=== PATIENT | male | born 1945 | race Caucasian/White ===

== ENCOUNTER 2017-05-16 13:32 | Inpatient (IN) | payer OTHER ==
[~2017-05-16] VITALS: Ht 175.3 cm; Wt 62.1 kg
[~2017-05-16 13:32] MED LIST: AMIO200T PO; ASPI81CT89 PO; ATOR40TA PO; CARV3.122 PO; FERR325E14 PO; FURO-570 PO; GLIM2TAB PO; INSULIN GLARGINE SUBQ; Ondansetron IVP; POTA8TER12 PO; RIVA20TA PO; SITA50TA3 PO; SYN.1 PO; [UNRECOGNIZED DRUG - CODE] PO
[2017-05-16 13:47] VITALS: BP 148/86
--- NOTE | 2017-05-16 13:57 | NUR ---
PATIENT BIBA TO BED 3.
--- NOTE | 2017-05-16 14:00 | NUR ---
72M BIBA FROM HOME C/O GENERALIZED WEAKNESS X 1 DAY; PT AA&OX3 ON ARRIVAL, PERRLA, CALM/COOPERATIVE, ABLE TO FOLLOW COMMANDS; RR EVEN/UNLABORED, EQUAL RISE/FALL OF CHEST NOTED AT THIS TIME WITH RHONCHI TO BL BASES; PT STATES NO PAIN, N/V/D AT THIS TIME; PT NOTED WITH ERYTHEMA TO SACRUM AT THIS TIME; NO OPEN WOUND NOTED AT THIS TIME; PT NOTED WITH BL DRY/FLAKY SKIN TO BL FEET; PT STATES NO PAIN TO BL FEET AT THIS TIME; SKIN IS WARM/DRY AT THIS TIME; PT NOTED WITH HEALED SCAR TO ABDOMEN; PT STATES AMBULATES WITH CANE AT HOME; HX: PACEMAKER, AFIB, HTN, HYPERLIPIDEMIA, MULTIPLE IA'S, CVA; PT PLACED ON MONITOR, RESTING IN BED WITH HOB ELEVATED AND IN LOWEST POSITION; POSITIONED FOR COMFORT; ER MD MADE AWARE OF STATUS. WILL CONTINUE TO MONITOR.
[2017-05-16] MEDS ORDERED: NACL 0.9% 1,000 ML IV SCH ×2 (14:03→15:48)
[2017-05-16] MEDS ORDERED: ACETAMINOPHEN 325 MG TAB ONE (14:19)
[2017-05-16 14:35] LABS: HEMOGLOBIN 13.1 g/dL (12.0-18.0); MEAN CORPUSCULAR HEMOGLOBIN 31 pg (27-31); MEAN CORPUSCULAR HGB CONC 33 g/dL (33-37); MEAN CORPUSCULAR VOLUME 95 fL (80-94); PLATELET COUNT (AUTO) 223 K/uL (140-450); RED BLOOD CELL COUNT(AUTO) 4.23 MIL/uL (4.20-6.10); RED CELL DISTRIBUTION WIDTH 12.2 % (11.6-13.7); WHITE BLOOD COUNT (AUTO) 14.9 K/uL (4.8-10.8)
[2017-05-16 14:49] LABS: LYMPHOCYTES % (MANUAL) 2 % (20-46); MONOCYTES % (MANUAL) 2 % (5-12)
--- NOTE | 2017-05-16 14:52 | NUR ---
XRAY AT BEDSIDE.
[2017-05-16 15:00] LABS: ANION GAP 18.5 (8-16); ASPARTATE AMINOTRANSFERASE 11 U/L (15-37); CARBON DIOXIDE 22.7 mmol/L (21-32); CHLORIDE 100 mmol/L (98-107); CREATININE 1.6 mg/dL (0.7-1.3); POTASSIUM 5.2 mmol/L (3.5-5.1); SODIUM SERUM 136 mmol/L (136-145); TOTAL BILIRUBIN 1.6 mg/dL (0.0-1.0); UREA NITROGEN, BLOOD 43 mg/dL (7-18)
[2017-05-16] MEDS ORDERED: PIPERACILLIN/TAZOBACTAM 3.375 GM in DEXTROSE 5% 50 ML IV ONE (15:05)
--- NOTE | 2017-05-16 15:10 | NUR ---
PT APPEARS TO BE RESTING COMFORTABLY IN BED; RR EVEN/UNLABORED; VSS; WILL CONTINUE TO MONITOR.
[2017-05-16 15:12] LABS: GLUCOSE 841 mg/dL (74-106)
[2017-05-16] MEDS ORDERED: NACL 0.9% 1,000 ML IV ONE (15:35)
[2017-05-16] MEDS ORDERED: ONDANSETRON 4 MG/2 ML VIAL IM/IVP PRN (15:50)
[2017-05-16] MEDS ORDERED: MORPHINE SULFATE 2 MG/ML SYR IVP PRN (15:50)
[2017-05-16] MEDS ORDERED: DOCUSATE SODIUM 100 MG GELCAP PO PRN (15:50)
[2017-05-16] MEDS ORDERED: PIPERACILLIN/TAZOBACTAM 3.375 GM VIAL IV ONE (16:05)
--- NOTE | 2017-05-16 16:25 | NUR ---
CALLED [facility] TO GIVE REPORT; S/W WITH LESLI LAURENT; RN SPEAKING TO CHARGE NURSE ABOUT BLOOD SUGAR; WILL CALL BACK.
--- NOTE | 2017-05-16 16:34 | NUR ---
REPORT GIVEN TO LESLI LAURENT AT THIS TIME.
[2017-05-16] MEDS ORDERED: DEXTROSE 50% 50 ML SYR IVP PRN (16:35)
--- NOTE | 2017-05-16 16:40 | NUR ---
Patient will be admitted to care of DR. HULL. Admited to TELEMETRY. Will go to room 124B. Belongings list completed. Report to LESLI LAURENT.
[2017-05-16 16:45] LABS: CHOL/HDL RATIO 3.4 (1-4.5); FREE T4 (FREE THYROXINE) 1.11 ng/dL (0.76-1.46); MAGNESIUM 2.6 mg/dL (1.8-2.4); THYROID STIMULATING HORMONE 0.78 uIU/mL (0.34-3.74)
--- NOTE | 2017-05-16 16:55 | NUR ---
RECEIVED PT FROM ER NURSE AT BEDSIDE. PT IS A&OX3. PT HAS IV ON R F/A 18 G CONNECTED TO ZOSYN BUT ALREADY FINISHED. WILL CONNECT TO IVF ORDERED. RECHECK BS 567, WILL REPORT TO . PT HAS NO PAIN. ORIENTED PT TO ROOM AND USE OF CALL LIGHT. NO DISTRESS NOTED IN PT. VS STABLE. CALL LIGHT WITHIN REACH. WILL CONTINUE TO MONITOR.
[2017-05-16] MEDS ORDERED: MECLIZINE 25 MG TAB PO PRN (17:15)
[2017-05-16 17:20] VITALS: BP 109/87
--- NOTE | 2017-05-16 18:00 | NUR ---
PT GOT UP TO USE BATHROOM WITH 1 ASSIST, TOLERATED WELL. HAD SMALL BM AND VOIDED. HELPED BACK TO BED. CALL LIGHT WITHIN REACH. WILL CONTINUE TO MONITOR. BED ALARM ON.
[2017-05-16] MEDS ORDERED: INSULIN DETEMIR 100 UNITS/ML 10 ML VIAL SUBQ SCH (18:15)
[2017-05-16] MEDS ORDERED: CLINICAL MONITORING MC PRN (18:20)
[2017-05-16] MEDS: NACL 0.9% 1,000 ML IV SCH ×2 (18:21→23:52)
[2017-05-16 18:29] LABS: BILIRUBIN,URINE NEGATIVE (NEGATIVE); BLOOD, URINE NEGATIVE (NEGATIVE); LEUKOCYTE ESTERASE ,URINE NEGATIVE (NEGATIVE); NITRITE, URINE NEGATIVE (NEGATIVE); PH,URINE 5.5 (5.0-9.0); UGLUCOSE 3+ (NEGATIVE)
[2017-05-16 18:30] LABS: APPEARANCE,URINE CLEAR (CLEAR); COLOR,URINE STRAW (YELLOW)
--- NOTE | 2017-05-16 19:09 | NUR ---
PT REQUESTED $400 TO BE KEPT IN [facility], CALLED ADMITTING. PT'S DAUGHTER REQUESTS TO BE NOTIFIED ON STATUS OF PT RICARDO LIN [phone], BUT PT PREFERS GRANDDAUGHTER ROBERT TO BE PRIMARY PERSON TO NOTIFY BECAUSE SHE LIVES CLOSER [phone], ADMITTING AWARE.
--- NOTE | 2017-05-16 19:25 | NUR ---
ENDORSED CARE OF PT TO BREANN RN AT BEDSIDE. PT IN STABLE CONDITION.
--- NOTE | 2017-05-16 19:30 | NUR ---
RECEIVED REPORT FROM AM NURSE. PT RESTING IN BED, AOX4, ABLE TO VERBALIZE NEEDS, AMBULATORY WITH STANDBY ASSIST OR CANE. PT DENIES CHEST PAIN, SOB OR S/S OF ACUTE DISTRESS. STAFFING PROGRAM MANAGER IN PLACE. IV ACCESS ASYMPTOMATIC, PATENT AND INTACT. IVF INFUSING WELL. DISCUSSED PLAN OF CARE WITH PT. PT VERBALIZED UNDERSTANDING. SAFETY MEASURES ENSURED. CALL LIGHT WITHIN REACH. WILL CONTINUE TO MONITOR.
[2017-05-16 20:00] VITALS: BP 129/74
[2017-05-16 20:55] LABS: ANION GAP 17.3 (8-16); CARBON DIOXIDE 22.2 mmol/L (21-32); CHLORIDE 104 mmol/L (98-107); CREATININE 1.4 mg/dL (0.7-1.3); POTASSIUM 4.5 mmol/L (3.5-5.1); SODIUM SERUM 139 mmol/L (136-145); UREA NITROGEN, BLOOD 36 mg/dL (7-18)
[2017-05-16 20:57] LABS: GLUCOSE 572 mg/dL (74-106)
[2017-05-16] MEDS ORDERED: PIPER/TAZO 3.375GM/D5W PREMIX 50 ML IV SCH (21:00)
[2017-05-16] MEDS ORDERED: AMIODARONE 200 MG TAB PO SCH (21:00)
[2017-05-16] MEDS: CARVEDILOL 3.125 MG TAB PO SCH (21:15)
[2017-05-16] MEDS: FUROSEMIDE 40 MG TAB PO SCH (21:15)
[2017-05-16] MEDS: BLOOD GLUCOSE MONITORING 1 DEV DEV FS SCH ×2 (21:16→23:58)
[2017-05-16] MEDS: INSULIN LISPRO SLIDING SCALE 100 UNITS/ML VIAL SUBQ PRN (21:23)
--- NOTE | 2017-05-16 21:30 | NUR ---
BLOOD SUGAR 572, MADE DR RENEE AWARE. MD INSTRUCTED TO ADMINISTER 10 UNITS HUMALOG SUBCUTANEOUS AND RECHECK BLOOD SUGAR IN 20 MINS AFTER ADMINISTRATION. ADMINISTERED INSULIN COVERAGE AND DUE MEDS WITH EDUCATION. PT VERBALIZED UNDERSTANDING, TOLERATED MEDS WELL. ALL NEEDS MET. SAFETY MEASURES ENSURED. CALL LIGHT WITHIN REACH. WILL CONTINUE TO MONITOR.
--- NOTE | 2017-05-16 22:33 | NUR ---
CALLED DR RENEE, MADE AWARE OF PT'S ACCUCHECK BLOOD SUGAR 350 AT THIS TIME. INSTRUCTED BY TO MONITOR PT AND RECHECK BLOOD SUGAR AT 0000 MIDNIGHT. WILL CARRY OUT.
[2017-05-16] MEDS: PIPER/TAZO 2.25GM/D5W PREMIX 50 ML IV SCH (23:51)
[2017-05-17] VITALS (8 sets, daily range): BP systolic 109–134; BP diastolic 58–77
--- NOTE | 2017-05-17 | NUR ---
CALLED DR RENEE, MADE MD AWARE OF PT BLOOD SUGAR 201 AT THIS TIME. MD INSTRUCTED NOT TO GIVE INSULIN COVERAGE AT THIS TIME AND RECHECK BLOOD SUGAR IN THE MORNING. ADMINISTERED DUE MEDICATIONS WITH EDUCATION. PT VERBALIZED UNDERSTANDING. IVPB INFUSING WELL. ALL NEEDS MET. SAFETY MEASURES ENSURED. CALL LIGHT WITHIN REACH. WILL CONTINUE TO MONITOR.
[2017-05-17] MEDS: ACETAMINOPHEN 325 MG TAB PO PRN ×2 (00:52→08:09)
--- NOTE | 2017-05-17 03:45 | NUR ---
ENDORSED PLAN OF CARE TO CONTINUING NIGHT RN. CONDITION STABLE.
--- NOTE | 2017-05-17 03:46 | NUR ---
RECEIVED REPORT FROM ANOTHER NIGHT NURSE. PT RESTING IN BED, AOX4, ABLE TO MAKE NEEDS KNOWN. IS ABLE TO AMBULATE WITH CANE AT STAND BYE FOR ASSISTANCE. NO S/S OF DISTRESS. NO COMPLAINTS OF PAIN AT THIS TIME. ON TELE MONITORING. WITH AN IV TO THE RIGHT FA, INTACT AND PATENT. REORIENTED PATIENT TO THE UNIT. WILL CONTINUE TO MONITOR. ALL NEEDS ATTENDED. CALL LIGHT WITHIN REACH. SAFETY CHECKS IN PLACE.
--- NOTE | 2017-05-17 04:00 | NUR ---
VS STABLE. NO S/S OF DISTRESS. NO COMPLAINTS OF PAIN. WILL CONTINUE TO MONITOR.
[2017-05-17] MEDS: PIPER/TAZO 2.25GM/D5W PREMIX 50 ML IV SCH ×2 (05:19→12:57)
[2017-05-17] MEDS: NACL 0.9% 1,000 ML IV SCH ×2 (05:19→11:40)
--- NOTE | 2017-05-17 05:20 | NUR ---
GAVE IV ATB ZOSYN, WILL CONTINUE TO MONITOR. ALL NEEDS ATTENDED. CALL LIGHT WITHIN REACH. SAFETY CHECKS IN PLACE.
--- NOTE | 2017-05-17 05:20 | NUR ---
CURRENTLY BEING ASSISTED TO THE RESTROOM BY THE BILLING CONTROL CLERK. WILL CONTINUE TO MONITOR.
[2017-05-17] MEDS: BLOOD GLUCOSE MONITORING 1 DEV DEV FS SCH ×4 (06:32→20:07)
--- NOTE | 2017-05-17 06:32 | NUR ---
CHECKED BLOOD SUGAR - 66. SAYS HE IS FEELING FINE. GAVE APPLE JUICE.
--- NOTE | 2017-05-17 07:20 | NUR ---
ENDORSED TO AM SHIFT NURSE FOR CONTINUITY OF CARE, IN STABLE CONDITION.
--- NOTE | 2017-05-17 07:21 | NUR ---
RECEIVED PT FROM CARE TRANSITION COORDINATOR NURSE AT BEDSIDE. PT IS A&OX3. PT HAS IV ON R F/A 18 G RUNNING NS@180. NO DISTRESS NOTED IN PT. BED ALARM ON. SCDS ON. CALL LIGHT WITHIN REACH. WILL CONTINUE TO MONITOR.
[2017-05-17] MEDS: CARVEDILOL 3.125 MG TAB PO SCH ×2 (08:07→20:42)
[2017-05-17] MEDS: FUROSEMIDE 40 MG TAB PO SCH ×2 (08:08→20:43)
[2017-05-17] MEDS: ATORVASTATIN 20 MG TAB PO SCH (08:08)
[2017-05-17] MEDS: LACTOBACILLUS RHAMNOSUS GG 1 EACH CAP PO SCH (08:08)
[2017-05-17] MEDS: LEVOTHYROXINE 0.1 MG TAB PO SCH (08:09)
[2017-05-17] MEDS: ASPIRIN 81 MG TAB.CHEW PO SCH (08:09)
--- NOTE | 2017-05-17 08:12 | NUR ---
ADMINISTERED SCHEDULED MORNING MEDICATIONS AND TYLENOL FOR PAIN. EDUCATED PT ON MEDICATIONS, PT VERBALIZED UNDERSTANDING. PT TOLERATED WELL. BED IN LOW POSITION, CALL LIGHT WITHIN REACH. WILL CONTINUE TO MONITOR.
[2017-05-17] MEDS ORDERED: RIVAROXABAN 10 MG TAB PO SCH ×2 (09:00→21:00)
[2017-05-17] MEDS ORDERED: POTASSIUM CHLORIDE 8 MEQ TABER PO SCH (09:00)
[2017-05-17] MEDS ORDERED: DEXTROSE 50% 50 ML SYR IVP PRN (09:20)
--- NOTE | 2017-05-17 09:24 | NUR ---
PT BLOOD SUGAR AT 59, PT NOT SYMPTOMATIC, BUT ADMINISTERED DEXTROSE [address] ORDER[address] (PT IS NPO, EXCEPT MEDS). PT TOLERATED WELL. PT STABLE, NO SIGNS OF DISTRESS NOTED. BED IN LOW POSITION, CALL LIGHT WITHIN REACH. WILL CONTINUE TO MONITOR.
--- NOTE | 2017-05-17 10:15 | NUR ---
FARM REPORTER TOOK PT FOR XRAY. PT STABLE, LEFT VIA WHEELCHAIR.
[2017-05-17 10:28] LABS: T4 (THYROXINE) 7.8 ug/dL (4.5 - 12.0)
--- NOTE | 2017-05-17 10:50 | NUR ---
PT WAS BROUGHT BACK FROM [facility] VIA WHEELCHAIR. PT ABLE TO TRANSFER TO BED WITH SOME ASSIST. PT IS STABLE. NO SIGNS OF DISTRESS NOTED. BED IN LOW POSITION, CALL LIGHT WITHIN REACH. WILL CONTINUE TO MONITOR.
[2017-05-17] MEDS ORDERED: DIGO-143 PO (11:06)
[2017-05-17] MEDS ORDERED: SITA25TA3 PO (11:07)
[2017-05-17] MEDS ORDERED: GLIP5TAB4 PO (11:09)
[2017-05-17] MEDS ORDERED: LISI5TAB18 PO (11:10)
[2017-05-17] MEDS ORDERED: CLOP75TA55 PO (11:12)
[2017-05-17] MEDS ORDERED: LISI2.5T12 PO (11:12)
[2017-05-17] MEDS ORDERED: WARF4TAB PO (11:13)
[2017-05-17] MEDS ORDERED: CARV6.25 PO (11:14)
--- NOTE | 2017-05-17 11:36 | NUR ---
CHANGED IV RATE FROM 180ML/HR TO 40ML/HR. PATIENT IS STABLE. DAUGHTER AND US SALES ACCOUNT DIRECTOR AT BEDSIDE.
[2017-05-17] MEDS: INSULIN LISPRO SLIDING SCALE 100 UNITS/ML VIAL SUBQ PRN ×3 (12:57→20:39)
[2017-05-17 13:11] LABS: WHITE BLOOD COUNT (AUTO) 7.5 K/uL (4.8-10.8)
[2017-05-17 13:12] LABS: HEMATOCRIT 35.8 % (36-52); HEMOGLOBIN 11.5 g/dL (12.0-18.0); MEAN CORPUSCULAR HEMOGLOBIN 31 pg (27-31); MEAN CORPUSCULAR HGB CONC 32 g/dL (33-37); MEAN CORPUSCULAR VOLUME 95 fL (80-94); PLATELET COUNT (AUTO) 193 K/uL (140-450); RED BLOOD CELL COUNT(AUTO) 3.76 MIL/uL (4.20-6.10); RED CELL DISTRIBUTION WIDTH 12.5 % (11.6-13.7)
[2017-05-17 13:26] LABS: BASOPHILS % (MANUAL) 1 % (0-2); EOSINOPHILS % (MANUAL) 1 % (0-4); LYMPHOCYTES % (MANUAL) 9 % (20-46); MONOCYTES % (MANUAL) 10 % (5-12)
[2017-05-17 13:30] LABS: ANION GAP 11.8 (8-16); CARBON DIOXIDE 25.6 mmol/L (21-32); CHLORIDE 103 mmol/L (98-107); GLUCOSE 239 mg/dL (74-106); POTASSIUM 3.4 mmol/L (3.5-5.1); SODIUM SERUM 137 mmol/L (136-145); UREA NITROGEN, BLOOD 17 mg/dL (7-18)
[2017-05-17 13:34] LABS: MAGNESIUM 1.7 mg/dL (1.8-2.4); PHOSPHORUS 2.3 mg/dL (2.5-4.9)
--- NOTE | 2017-05-17 14:03 | NUR ---
NON EMERGENCY SERVICES AMBULANCE DRIVER CALLED TO REPORT CRITICAL LAB VALUE OF 0.[address] BENITO.
[2017-05-17] MEDS ORDERED: hePARIN / DEXT 5% PREMIX 250 ML IV SCH (14:10)
[2017-05-17] MEDS ORDERED: HEPARIN PER PHARMACY MC PRN (14:10)
--- NOTE | 2017-05-17 14:50 | NUR ---
PHARMACIST CALLED, HEPARIN DRIP READY.
[2017-05-17] MEDS: hePARIN / DEXT 5% PREMIX 250 ML IV SCH (16:00)
--- NOTE | 2017-05-17 16:00 | NUR ---
HEPARIN DRIP STARTED. PT TOLERATED WELL. PT STABLE, NO SIGNS OF DISTRESS NOTED. BED IN LOW POSITION, CALL LIGHT WITHIN REACH. WILL CONTINUE TO MONITOR.
[2017-05-17] MEDS: WARFARIN 5 MG TAB PO SCH (16:50)
[2017-05-17] MEDS ORDERED: SODIUM PHOS / POTASSIUM PHOS 1 PKT PDR PO SCH (17:20)
[2017-05-17] MEDS ORDERED: MAG SULF 2000 MG/WATER PREMIX 50 ML IV SCH (17:20)
--- NOTE | 2017-05-17 18:00 | NUR ---
PT IS STABLE, RESTING. NO SIGNS OF DISTRESS NOTED. BED IN LOW POSITION, CALL LIGHT WITHIN REACH. WILL CONTINUE TO MONITOR.
--- NOTE | 2017-05-17 19:30 | NUR ---
ENDORSED PT TO SOUND SYSTEM INSTALLER NURSE. PT IS STABLE, NO SIGNS OF DISTRESS.
--- NOTE | 2017-05-17 19:35 | NUR ---
RECEIVED REPORTS FROM DAY RN. PATIENT RESTING IN BED, NO S/S OF ACUTE DISTRESS NOTED, RESPIRATION EVEN AND UNLABORED, IV INTACT AND PATENT, PLAN OF CARE DISCUSSED, VERBALIZED UNDERSTANDING. CALL LIGHT WITHIN REACH, SAFETY MEASURE ENSURED, WILL CONTINUE TO MONITOR.
--- NOTE | 2017-05-17 20:50 | NUR ---
PM MEDICATIONS GIVEN, PATIENT TOLERATED WELL. WILL CONTINUE TO MONITOR.
--- NOTE | 2017-05-17 22:05 | NUR ---
PATIENT ASKED," CAN I HAVE SOMETHING TO HELP ME SLEEP, I AM TIRED, BUT I CAN'T SLEEP." MADE DR. JACK AWARE OF PATIENT'S REQUEST. DR. JACK SAID," I WILL PUT AN ORDER IN."
[2017-05-18] VITALS: BP 117/65
[2017-05-18] MEDS ORDERED: ZOLPIDEM 5 MG TAB PO SCH
[2017-05-18] MEDS: hePARIN / DEXT 5% PREMIX 250 ML IV SCH (00:22)
--- NOTE | 2017-05-18 00:32 | NUR ---
ASSISTED PATIENT TO THE BATHROOM. VOID X1, PATIENT RESTING IN BED AT THIS TIME. NO S/S OF ACUTE DISTRESS NOTED, RESPIRATION EVEN AND UNLABORED, CALL LIGHT WITHIN REACH, SAFETY MEASURE ENSURED ,WILL CONTINUE TO MONITOR.
[2017-05-18 04:00] VITALS: BP 110/56
--- NOTE | 2017-05-18 04:24 | NUR ---
PATIENT SLEEPING IN BED, NO S/S OF ACUTE DISTRESS NOTED, RESPIRATION EVEN AND UNLABORED, CALL LIGHT WITHIN REACH, SAFETY MEASURE ENSURED, WILL CONTINUE TO MONITOR.
[2017-05-18 06:52] LABS: HEMATOCRIT 36.6 % (36-52); HEMOGLOBIN 12.3 g/dL (12.0-18.0); MEAN CORPUSCULAR HEMOGLOBIN 32 pg (27-31); MEAN CORPUSCULAR HGB CONC 34 g/dL (33-37); MEAN CORPUSCULAR VOLUME 94 fL (80-94); PLATELET COUNT (AUTO) 211 K/uL (140-450); RED CELL DISTRIBUTION WIDTH 12.6 % (11.6-13.7)
[2017-05-18] MEDS: BLOOD GLUCOSE MONITORING 1 DEV DEV FS SCH ×4 (07:04→21:05)
[2017-05-18 07:18] LABS: ANION GAP 11.7 (8-16); CARBON DIOXIDE 26.9 mmol/L (21-32); CHLORIDE 102 mmol/L (98-107); CREATININE 0.8 mg/dL (0.7-1.3); GLUCOSE 179 mg/dL (74-106); POTASSIUM 3.6 mmol/L (3.5-5.1); SODIUM SERUM 137 mmol/L (136-145); UREA NITROGEN, BLOOD 12 mg/dL (7-18)
[2017-05-18] MEDS: INSULIN LISPRO SLIDING SCALE 100 UNITS/ML VIAL SUBQ PRN ×2 (07:19→12:10)
[2017-05-18 07:20] LABS: PROTHROMBIN TIME 11.6 secs (10.8-13.4)
--- NOTE | 2017-05-18 07:21 | NUR ---
ENDORSED PLAN OF CARE TO DAY RN. PATIENT IS IN STABLE CONDITION.
--- NOTE | 2017-05-18 07:23 | NUR ---
RECEIVED REPORT FROM SURVEY AND MAPPING TECHNICIAN NURSE AT PT BEDSIDE. PT IS AAOX3, ON ROOM AIR. SKIN INTACT, IV IS ASYMPTOMATIC ON RIGHT FA, 18 GAUGE RUNNING NS, THE OTHER 22 GAUGE IV ON THE LEFT UPPER ARM IS ASYMPTOMATIC WELL RUNNING HEPARIN. NO SIGNS OF BLEEDING NOTED. PT VITAL SIGNS ARE WNL. REVIEWED PLAN OF CARE WITH PATIENT, PT VERBALIZED UNDERSTANDING. PT IS STABLE, NO SIGNS OF DISTRESS NOTED. BED IN LOW POSITION, CALL LIGHT WITHIN REACH. WILL CONTINUE TO MONITOR.
[2017-05-18 07:28] LABS: PHOSPHORUS 2.4 mg/dL (2.5-4.9)
--- NOTE | 2017-05-18 07:33 | NUR ---
PATIENT HAS BEEN SCREENED AND CATEGORIZED HIGH NUTRITION RISK. PATIENT WILL BE SEEN WITHIN 1-2 DAYS OF ADMISSION. 05/17/17-05/18/17 ANKIT CERVANTES MS, RDN
--- NOTE | 2017-05-18 07:46 | NUR ---
LAB CALLED PTT 56.8, TRENDING DOWN FROM 101.8
[2017-05-18 08:00] VITALS: BP 122/66
[2017-05-18 08:03] LABS: BASOPHILS % (MANUAL) 0 % (0-2); EOSINOPHILS % (MANUAL) 2 % (0-4); LYMPHOCYTES % (MANUAL) 12 % (20-46); MONOCYTES % (MANUAL) 4 % (5-12)
[2017-05-18] MEDS: LACTOBACILLUS RHAMNOSUS GG 1 EACH CAP PO SCH (08:28)
[2017-05-18] MEDS: DIGOXIN 0.125 MG TAB PO SCH (08:29)
[2017-05-18] MEDS: ASPIRIN 81 MG TAB.CHEW PO SCH (08:30)
[2017-05-18] MEDS: CARVEDILOL 3.125 MG TAB PO SCH ×2 (08:30→20:58)
[2017-05-18] MEDS: FUROSEMIDE 40 MG TAB PO SCH ×2 (08:31→20:59)
[2017-05-18] MEDS: ATORVASTATIN 20 MG TAB PO SCH (08:31)
[2017-05-18] MEDS: INSULIN DETEMIR 100 UNITS/ML 10 ML VIAL SUBQ SCH (08:38)
[2017-05-18] MEDS: LEVOTHYROXINE 0.1 MG TAB PO SCH (08:38)
--- NOTE | 2017-05-18 08:50 | NUR ---
ADMINISTERED SCHEDULED MORNING MEDS, PT TOLERATED WELL. CHECKED BLOOD GLUCOSE LEVEL, IT WAS 289. PT IS STABLE, NO SIGNS OF DISTRESS NOTED. BED IN LOW POSITION, CALL LIGHT WITHIN REACH. WILL CONTINUE TO MONITOR.
[2017-05-18] MEDS ORDERED: ECOTRIN 81 MG TABEC PO SCH (09:00)
[2017-05-18] MEDS: NACL 0.9% 1,000 ML IV SCH (09:33)
[2017-05-18] MEDS: CLOPIDOGREL 75 MG TAB PO SCH (09:44)
--- NOTE | 2017-05-18 11:20 | NUR ---
05/18/17 RD INITIAL ASSESSMENT COMPLETED PLEASE REFER TO NUTRITION ASSESSMENT UNDER CARE ACTIVITY FOR ESTIMATED NUTRITIONAL NEEDS. RD RECOMMENDATIONS: 1. CONTINUE ON CCHO 60 GM DIABETIC DIET. 2. CONSULT RDN PRN. 3. RD WILL F/U 5-7 DAYS; LOW RISK. ANKIT CERVANTES, MS, RDN
--- NOTE | 2017-05-18 11:30 | NUR ---
PT ATE 100% OF BREAKFAST. HIS BLOOD SUGAR WAS 332, FOR WHICH 8 UNITS OF INSULIN WERE GIVEN. PT IS STABLE, NO SIGNS OF DISTRESS NOTED. BED IN LOW POSITION, CALL LIGHT WITHIN REACH. WILL CONTINUE TO MONITOR.
--- NOTE | 2017-05-18 11:30 | NUR ---
CALLED [facility] AND FOUND OUT PT'S PACEMAKER IS FROM [facility]. REP WILL GET INTO CONTACT.
[2017-05-18 12:00] VITALS: BP 123/70
[2017-05-18] MEDS: HYDROcodone/APAP 7.5/325 MG 1 TAB PO PRN ×2 (12:07→20:58)
--- NOTE | 2017-05-18 12:10 | NUR ---
LAB CALLED, TROPONIN LEVEL 0.09, TRENDING DOWN FROM 0.154
--- NOTE | 2017-05-18 12:30 | NUR ---
REP FROM [facility] CALLED AND STATED INTERROGATION DEVICE IS SET UP IN [facility]. WILL GO TO ICU TO JUNIOR ASSISTANT MANAGER THE DEVICE.
--- NOTE | 2017-05-18 14:30 | NUR ---
PT IS STABLE, NO SIGNS OF DISTRESS NOTED. FAMILY AT BEDSIDE. BED IN LOW POSITION, CALL LIGHT WITHIN REACH. WILL CONTINUE TO MONITOR.
--- NOTE | 2017-05-18 15:15 | NUR ---
PERFORMED PACEMAKER INTERROGATION AT BEDSIDE USING [facility] DEVICE. PT TOLERATED WELL. CALL LIGHT WITHIN REACH. WILL CONTINUE TO MONITOR.
--- NOTE | 2017-05-18 15:25 | NUR ---
RECEIVED FAXED [facility] REPORT ON PT'S PACEMAKER. GAVE REPORT TO DR. HINES.
[2017-05-18 16:00] VITALS: BP 117/62
[2017-05-18] MEDS: WARFARIN 5 MG TAB PO SCH (16:15)
--- NOTE | 2017-05-18 16:30 | NUR ---
SCHEDULED COUMADIN GIVEN, INR 1.1. PT IS STABLE, NO SIGNS OF DISTRESS NOTED. BED IN LOW POSITION, CALL LIGHT WITHIN REACH. WILL CONTINUE TO MONITOR.
--- NOTE | 2017-05-18 16:50 | NUR ---
DISCONTINUED PT'S IV ON L U/A WHICH WAS RUNNING HEPARIN DRIP DUE TO BLEEDING. CANNULA INTACT. WILL REINSERT NEW IV.
--- NOTE | 2017-05-18 17:00 | NUR ---
INSERTED NEW IV ON L A/C 22 G. PT TOLERATED WELL. CALL LIGHT WITHIN REACH. WILL CONTINUE TO MONITOR.
--- NOTE | 2017-05-18 18:52 | NUR ---
PT IS STABLE, NO SIGNS OF DISTRESS NOTED. BED IN LOW POSITION, CALL LIGHT WITHIN REACH. WILL CONTINUE TO MONITOR.
--- NOTE | 2017-05-18 19:32 | NUR ---
ENDORSED CARE OF PT TO SQUAD LEADER NURSE AT BEDSIDE. PT IN STABLE CONDITION.
--- NOTE | 2017-05-18 19:33 | NUR ---
RECD. RESTING IN BED, AWAKE, A/OX 3, RESPIRATION EVEN AND UNLABORED. IV OF NS AT 40 ML/HR INFUSING, RIGHT FA, G18, HEPARIN DRIP INFUSING AT 600 UNITS/HR, LEFT AG G 22. SAFETY MEASURES ENFORCED. ON BILATERAL LEG SEQUENTIALS.USES THE URINAL. INSTRUCTED TO CALL NURSE FOR HELP WHEN GETTING OUT OF BED. PLAN OF ARE FOR THE SHIFT DISCUSSED. VERBALIZED UNDERSTANDING. DENIES PAIN 0/10.
[2017-05-18 20:00] VITALS: BP 112/60
--- NOTE | 2017-05-18 20:00 | NUR ---
Patient's Plan of Care was discussed and reviewed with PUBLIC POLICY COORDINATOR: EDI BELTRE.
--- NOTE | 2017-05-18 21:05 | NUR ---
DUE PO MEDICATIONS GIVEN. REFUSED SNACK OF CRACKERS, STATED IT HURTS MY THROAT. PUDDING GIVEN INSTEAD.
[2017-05-19] VITALS: BP 123/65
--- NOTE | 2017-05-19 | NUR ---
USES URINAL TWICE, ABLE TO STAND BESIDE BED WITHOUT TENDENCY TO FALL. BACK TO BED AFTER EACH VOIDING. SAFETY MAINTAINED.
[2017-05-19 04:00] VITALS: BP 117/63
--- NOTE | 2017-05-19 04:00 | NUR ---
SLEEPING COMFORTABLY IN BED.
[2017-05-19 06:17] LABS: HEMATOCRIT 32.5 % (36-52); HEMOGLOBIN 10.8 g/dL (12.0-18.0); MEAN CORPUSCULAR HEMOGLOBIN 31 pg (27-31); MEAN CORPUSCULAR HGB CONC 33 g/dL (33-37); MEAN CORPUSCULAR VOLUME 93 fL (80-94); PLATELET COUNT (AUTO) 210 K/uL (140-450); RED BLOOD CELL COUNT(AUTO) 3.48 MIL/uL (4.20-6.10); RED CELL DISTRIBUTION WIDTH 12.4 % (11.6-13.7); WHITE BLOOD COUNT (AUTO) 8.4 K/uL (4.8-10.8)
[2017-05-19] MEDS: BLOOD GLUCOSE MONITORING 1 DEV DEV FS SCH ×4 (06:21→20:46)
[2017-05-19 06:45] LABS: ANION GAP 9.5 (8-16); CARBON DIOXIDE 28.2 mmol/L (21-32); CHLORIDE 103 mmol/L (98-107); CREATININE 0.7 mg/dL (0.7-1.3); GLUCOSE 128 mg/dL (74-106); POTASSIUM 3.7 mmol/L (3.5-5.1); SODIUM SERUM 137 mmol/L (136-145); UREA NITROGEN, BLOOD 12 mg/dL (7-18)
[2017-05-19 06:59] LABS: MAGNESIUM 1.9 mg/dL (1.8-2.4); PHOSPHORUS 2.9 mg/dL (2.5-4.9)
--- NOTE | 2017-05-19 07:20 | NUR ---
ABLE TO SLEPT WELL. CONDITION REMAIN STABLE. ENDORSED TO LESLI OROZCO FOR CONTINUITY OF CARE.
--- NOTE | 2017-05-19 07:21 | NUR ---
RECEIVED REPORT FROM THE STORE HOST NURSE AT BEDSIDE FOR CONTINUITY OF CARE. PT IS AWAKE,ALERT AND ORIENTED. PT SPEAKS PARAGUAYAN WELL. INTRODUCED MYSELF AND UPDATED THE BOARD. PT'S V/S WITHIN NORMAL RANGE. HAS SOME PAIN IN HIS L SIDE. CXRY WAS NEG. PAIN 02/22. WILL MEDICATE ALONG WITH MORNING MEDS. PT IV ON L AC 22G, HEP DRIP AT 6U INFUSING. PT R FA 18G. FLUSHES BUT DRESSING IS ALL LOOSE. DRESSING REDRESSED AND RETAPED. NS INFUSING WELL. NO OTHER COMPLAINTS AT THIS TIME. WILL CONTINUE TO MONITOR PT.
[2017-05-19 07:48] LABS: LYMPHOCYTES % (MANUAL) 14 % (20-46); MONOCYTES % (MANUAL) 2 % (5-12)
[2017-05-19 08:00] VITALS: BP 124/54
[2017-05-19] MEDS: DIGOXIN 0.125 MG TAB PO SCH (08:39)
[2017-05-19] MEDS: HYDROcodone/APAP 7.5/325 MG 1 TAB PO PRN ×2 (08:39→16:16)
[2017-05-19] MEDS: ATORVASTATIN 20 MG TAB PO SCH (08:39)
[2017-05-19] MEDS: LEVOTHYROXINE 0.1 MG TAB PO SCH (08:40)
[2017-05-19] MEDS: CARVEDILOL 3.125 MG TAB PO SCH ×2 (08:40→20:45)
[2017-05-19] MEDS: FUROSEMIDE 40 MG TAB PO SCH ×2 (08:40→20:46)
[2017-05-19] MEDS: CLOPIDOGREL 75 MG TAB PO SCH (08:40)
[2017-05-19] MEDS: hePARIN / DEXT 5% PREMIX 250 ML IV SCH (08:43)
[2017-05-19] MEDS: INSULIN DETEMIR 100 UNITS/ML 10 ML VIAL SUBQ SCH (08:45)
--- NOTE | 2017-05-19 08:53 | NUR ---
ADMINISTERED MORNING MEDS, PAIN MED, AND REPLACED A NEW BAG OF HEPARIN. PT TOLERATED WELL. WILL CONTINUE TO MONITOR PT.
[2017-05-19 09:48] LABS: PROTHROMBIN TIME 15.1 secs (10.8-13.4)
--- NOTE | 2017-05-19 09:54 | NUR ---
LAB CALLED PTT 58.4. NO CHANGE. CURRENT DOSING AT 6 ML/HR. WILL REMAIN THE SAME.
--- NOTE | 2017-05-19 11:30 | NUR ---
PT IS SLEEPING. NO SIGNS OF DISTRESS. WILL CONTINUE TO MONITOR PT.
[2017-05-19 12:00] VITALS: BP 125/66
--- NOTE | 2017-05-19 13:45 | NUR ---
PT WATCHING TV. NO COMPLAINTS AT THIS TIME. WILL CONTINUE TO MONITOR PT.
--- NOTE | 2017-05-19 15:47 | NUR ---
PT IS SLEEPING. NO SIGNS OF DISTRESS. WILL CONTINUE TO MONITOR PT.
[2017-05-19] MEDS ORDERED: MAGNESIUM OXIDE 400 MG TAB PO SCH (15:58)
[2017-05-19 16:00] VITALS: BP 104/58
[2017-05-19] MEDS: WARFARIN 5 MG TAB PO SCH (16:16)
--- NOTE | 2017-05-19 18:02 | NUR ---
LAB CALLED WITH PTT 63.5. NO CHANGE IN ORDERS FOR HEPARIN.
--- NOTE | 2017-05-19 19:20 | NUR ---
ENDORSED PT TO THE STEAM TRAP WORKER NURSE AT BEDSIDE FOR CONTINUITY OF CARE. PT IS IN STABLE CONDITION.
--- NOTE | 2017-05-19 19:30 | NUR ---
RECEIVED FROM AM RN IN BED SITTING UP. ABLE TO VERBALIZE NEEDS WELL. NO SOB. CALL LIGHT WITH IN REACH AND CARE PLANS FOR THE NIGHT DISCUSSED WITH HIM. WITH HEPARIN PER IVP INFUSING AT 6 ML / HOUR. DX. OF SEPSIS/PNA. IVF SITE INTACT AND NO INFILTRATION NOTED. WITH GOOD BLOOD RETURN.
[2017-05-19 20:18] VITALS: BP 100/61
[2017-05-19] MEDS: INSULIN LISPRO SLIDING SCALE 100 UNITS/ML VIAL SUBQ PRN (20:49)
--- NOTE | 2017-05-19 23:33 | NUR ---
SLEEPING AT THIS TIME. CALL LIGHT WITH IN REACH. NO SOB. NO RESTLESSNESS NOTED. TELEMETRY MONITORING.
[2017-05-20 00:47] VITALS: BP 123/62
--- NOTE | 2017-05-20 02:00 | NUR ---
SLEEPING. NO RESTLESSNESS NOTED. TELEMETRY MONITORING. IVF SITE INTACT AND NO INFILTRATION. WITH HEPARIN AT 6 ML PER HOUR INFUSING WELL.
[2017-05-20 04:09] VITALS: BP 112/60
[2017-05-20] MEDS: BLOOD GLUCOSE MONITORING 1 DEV DEV FS SCH ×2 (05:15→12:27)
[2017-05-20] MEDS: HYDROcodone/APAP 7.5/325 MG 1 TAB PO PRN (05:43)
--- NOTE | 2017-05-20 05:45 | NUR ---
SLEPT WELL THIS SHIFT. AWAKE AT THIS TIME. BLOOD WORKS BY SCHEDULE ANNOUNCER DONE. MEDICATED WITH NORCO REQUESTED RT C/O PAIN /RIBS. ABLE TO VERBALIZE NEEDS WELL.
[2017-05-20 06:23] LABS: BASOPHILS # (AUTO) 0.1 K/uL (0.00-0.22); BASOPHILS % (AUTO) 1.1 % (0.0-2.0); EOSINOPHILS # (AUTO) 0.1 K/uL (0-0.4); EOSINOPHILS % (AUTO) 1.7 % (0.0-4.0); HEMATOCRIT 34.7 % (36-52); HEMOGLOBIN 11.7 g/dL (12.0-18.0); LYMPHOCYTES # (AUTO) 0.7 K/uL (2.0-11.5); LYMPHOCYTES % (AUTO) 9.4 % (20.5-51.1); MEAN CORPUSCULAR HEMOGLOBIN 32 pg (27-31); MEAN CORPUSCULAR HGB CONC 34 g/dL (33-37); MEAN CORPUSCULAR VOLUME 95 fL (80-94); MONOCYTES # (AUTO) 0.3 K/uL (0.8-1.0); MONOCYTES % (AUTO) 4.2 % (1.7-9.3); NEUTROPHILS # (AUTO) 6.7 K/uL (1.8-7.7); NEUTROPHILS % (AUTO) 83.6 % (42.2-75.2); PLATELET COUNT (AUTO) 199 K/uL (140-450); RED BLOOD CELL COUNT(AUTO) 3.67 MIL/uL (4.20-6.10); RED CELL DISTRIBUTION WIDTH 12.4 % (11.6-13.7)
[2017-05-20 06:34] LABS: ANION GAP 10.9 (8-16); CARBON DIOXIDE 29.4 mmol/L (21-32); CHLORIDE 101 mmol/L (98-107); CREATININE 0.8 mg/dL (0.7-1.3); GLUCOSE 97 mg/dL (74-106); POTASSIUM 4.3 mmol/L (3.5-5.1); SODIUM SERUM 137 mmol/L (136-145); UREA NITROGEN, BLOOD 16 mg/dL (7-18)
[2017-05-20 06:39] LABS: PHOSPHORUS 2.8 mg/dL (2.5-4.9)
--- NOTE | 2017-05-20 07:05 | NUR ---
RECEIVED REPORT FROM CRUSHER NURSE AT BEDSIDE FOR CONTINUITY OF CARE. PT IS AWAKE AND ORIENTED. INTRODUCED SELF AND UPDATED BOARD. PT VS ARE WNL ON RA AND DENIES PAIN AT THIS TIME. IV IS ON L UA 22G WITH HEPARIN INFUSING AT 600UNITS/HR. SECOND IV ON R FA 18G SL. PT HAS NO COMPLAINTS AT THIS TIME WILL CONTINUE TO MONITOR.
--- NOTE | 2017-05-20 07:25 | NUR ---
RECEIVED REPORT FROM THE FRIT MIXER AND BURNER NURSE AT BEDSIDE FOR CONTINUITY OF CARE. PT IS AWAKE AND ORIENTED. INTRODUCED OURSELVES AND UPDATED THE BOARDS. PT IS ANXIOUS ABOUT GOING HOME TODAY. DRS HAVE DONE THEIR ROUNDS. ORDERED LABS AND CXRY FOR HIS PNA FOR TODAY. ONCE IT IS GOOD, HE IS ABLE TO GO HOME. PT IS STILL GETTING HEPARIN CONTINUOUS DRIP AT 6ML/HR VIA IV ON L AC 22G. PATENT AND INFUSING WELL. R FA 18G SL. PT STILL USING THE URINAL AT BEDSIDE. V/S WITHIN NORMAL RANGE. WILL CONTINUE TO MONITOR PT.
[2017-05-20 07:27] LABS: WHITE BLOOD COUNT (AUTO) 7.9 K/uL (4.8-10.8)
[2017-05-20 08:00] VITALS: BP 119/79
[2017-05-20] MEDS: DIGOXIN 0.125 MG TAB PO SCH (08:40)
[2017-05-20] MEDS: LEVOTHYROXINE 0.1 MG TAB PO SCH (08:40)
[2017-05-20] MEDS: FUROSEMIDE 40 MG TAB PO SCH (08:40)
[2017-05-20] MEDS: CARVEDILOL 3.125 MG TAB PO SCH (08:41)
[2017-05-20] MEDS: CLOPIDOGREL 75 MG TAB PO SCH (08:41)
[2017-05-20] MEDS: ATORVASTATIN 20 MG TAB PO SCH (08:41)
[2017-05-20] MEDS: INSULIN DETEMIR 100 UNITS/ML 10 ML VIAL SUBQ SCH (08:43)
--- NOTE | 2017-05-20 08:50 | NUR ---
ADMINISTERED ALL MORNING MEDS, EXCEPT FOR LEVEMIR D/T DECREASED BS THIS MORNING. PT TOLERATED WELL. DENIES PAIN. PT IS ANXIOUS TO BE D/C. WILL CONTINUE TO MONITOR PT.
[2017-05-20 09:50] LABS: PROTHROMBIN TIME 18.8 secs (10.8-13.4)
--- NOTE | 2017-05-20 10:12 | NUR ---
RESIDENT MD AND MEDICAL STUDENT WITH PT NOW TO GET MORE INFORMATION ABOUT PCP, CORPORATE SALES TRAINER TO GET THE D/C ORDER IN PLACE.
[2017-05-20] MEDS ORDERED: METO25TE PO (11:25)
[2017-05-20 12:00] VITALS: BP 121/71
--- NOTE | 2017-05-20 12:00 | NUR ---
CHECKED ON PT. RESTING IN BED. BS WAS 260. 6 UNITS OF INSULIN GIVEN PER PROTOCOL. PT MADE OF AWARE OF DISCHARGE TODAY. WILL CALL [facility] WHEN READY.
[2017-05-20] MEDS ORDERED: RIVAROXABAN 10 MG TAB PO SCH (12:12)
[2017-05-20] MEDS: INSULIN LISPRO SLIDING SCALE 100 UNITS/ML VIAL SUBQ PRN (12:35)
--- NOTE | 2017-05-20 13:50 | NUR ---
REMOVED IV CATHETER FROM L FA 22G AND R FA 18G. IV CATHETER TIPS INTACT. APPLIED PRESSURE TO SITES. NO BLEEDING NOTED. REMOVED ID BANDS. PT CHANGED IN OWN CLOTHES. D/C PACKET SIGNED BY PT AND INSTRUCTIONS GIVEN. PT VERBALIZED UNDERSTANDING. PT D/C'D AND LEFT UNIT VIA WHEELCHAIR ACCOMPANIED BY FAMILY MEMBER. LEFT WITH ALL PERSONAL BELONGINGS. PT IN STABLE CONDITION.
--- NOTE | 2017-05-20 15:05 | NUR ---
CM NOTE PER BULLET CASTING OPERATOR MERARI, REVIEWS SHOULD ONLY BE SENT TO [facility] FAXED INITIAL REVIEW TO [facility] [phone] OF [facility] [phone] CM DEPT. PER APRIL, THEY ARE FULLY DELEGATED FOR THE PATIENT CARE AND THE TEMPORARY CM ASSIGNED TO THE PATIENT IS MAIA DUQUE [phone]
[2017-05-20] MEDS ORDERED: WARFARIN 2.5 MG TAB PO SCH (17:00)
[2017-05-21] MEDS ORDERED: RIVAROXABAN 10 MG TAB PO SCH (09:00)
[2017-05-21] MEDS ORDERED: METOPROLOL SUCCINATE 50 MG TABER PO SCH (09:00)
--- NOTE | 2017-05-23 15:25 | NUR ---
RECEIVED CLINICAL REVIEW REQUEST AT [facility] FROM [facility]. I CALLED HER AT [phone] AND TOLD HER ACCORDING TO THE NOTES, THAT WAS ALREADY FAXED TO HER ON 05/20/17. SHE SAID SHE NEVER GOT IT. I REFAXED THE REVIEW, H&P, ER REPORT AND DISCHARGE SUMMARY TO HER AT [phone]. TRACKING NUMBER [id number]
== END 2017-05-20 13:50 | disposition home or self-care (01) | DRG 280 ==
LOC: MED 13:32 → MTU 15:58
PROVIDERS: ADMIT Family Medicine; ATTEND Family Medicine
DX: I21.4 Non-ST elevation (NSTEMI) myocardial infarction (principal); I50.41 Acute combined systolic (congestive) and diastolic (congestive) heart failure; E11.00 Type 2 diabetes mellitus with hyperosmolarity without nonketotic hyperglycemic-hyperosmolar coma (NKHHC); R65.10 Systemic inflammatory response syndrome (SIRS) of non-infectious origin without acute organ dysfunction; D68.69 Other thrombophilia; I42.0 Dilated cardiomyopathy; I48.92 Unspecified atrial flutter; E86.0 Dehydration; E11.65 Type 2 diabetes mellitus with hyperglycemia; G90.9 Disorder of the autonomic nervous system, unspecified; I48.0 Paroxysmal atrial fibrillation; E83.42 Hypomagnesemia; R55 Syncope and collapse; I70.209 Unspecified atherosclerosis of native arteries of extremities, unspecified extremity; E83.39 Other disorders of phosphorus metabolism; E78.5 Hyperlipidemia, unspecified; E03.9 Hypothyroidism, unspecified; Z90.89 Acquired absence of other organs; Z79.4 Long term (current) use of insulin
CPT/HCPCS: 36415; 36600; 70450; 71010; 71100; 80048; 80053; 80162; 81003; 82150; 82550; 82553; 82803; 82948; 83036; 83605; 83690; 83735; 83874; 83880; 84100; 84436; 84439; 84443; 84479; 84484; 85025; 85610; 85730; 87040; 87081; 87086; 93005; 93880; 93925; 93970; 96361; 96365; 99291; J1644; J1815; J2543; J3475; J7030; J7060; Q0092